=== PATIENT | female | born 1970 | race Caucasian/White ===

== ENCOUNTER 2017-05-18 05:37 | Day surgery (SDC) | payer OTHER ==
[~2017-05-18] VITALS: Ht 162.6 cm; Wt 85.8 kg
[~2017-05-18 05:37] MED LIST: ATOR20TA9 PO; CHOL10003 PO; CITA20TA5 PO; HYDR-3237 PO; LOSA100T6 PO; OMEP10CA4 PO; PREN-3 PO; VENL75TA PO
[2017-05-18] MEDS ORDERED: LACTATED RINGERS 1,000 ML IV SCH (06:21)
[2017-05-18 06:23] VITALS: BP 139/98
[2017-05-18] MEDS ORDERED: LIDOCAINE 1%, 2ML SQ PRN (06:30)
[2017-05-18 06:36] LABS: HCG UR LOT HCG7030192
[2017-05-18 06:41] LABS: HCG UR OBC PASS
[2017-05-18] MEDS ORDERED: SILVER NITRATE STICK TP ONE (06:56)
[2017-05-18] MEDS ORDERED: BUPIVACAINE/PF 0.25% ONE (06:56)
[2017-05-18] MEDS ORDERED: EPINEPHRINE 1 MG/ML, 1ML ONE (06:56)
[2017-05-18] MEDS ORDERED: CEFAZOLIN 1,000 MG ONE ×2 (07:00)
[2017-05-18] MEDS ORDERED: FENTANYL PF 100 MCG/2ML ONE ×3 (07:03→07:48)
[2017-05-18] MEDS ORDERED: MIDAZOLAM 1 MG/ML, 2ML ONE (07:03)
[2017-05-18] MEDS ORDERED: MEPERIDINE/PF 25MG/0.5ML IVPush PRN (07:30)
[2017-05-18] MEDS ORDERED: FENTANYL PF 100 MCG/2ML IV PRN (07:30)
[2017-05-18] MEDS ORDERED: HYDROmorphone 1 MG/ML, 1ML IV PRN (07:30)
[2017-05-18] MEDS ORDERED: ONDANSETRON 2MG/ML, 2ML IVPush PRN (07:30)
[2017-05-18] MEDS ORDERED: ACETAMINOPHEN 325 MG TABLET PO PRN (07:30)
[2017-05-18] MEDS ORDERED: OXYcodone 5 MG/5 ML ORAL.SOL UDC PO PRN (07:30)
[2017-05-18] MEDS ORDERED: PROMETHAZINE 25 MG/ML, 1ML IV PRN (07:30)
[2017-05-18] MEDS ORDERED: KETOROLAC 30 MG/1 ML ONE (07:38)
[2017-05-18] MEDS ORDERED: PROPOFOL 10 MG/ML, 20ML ONE (07:46)
[2017-05-18] MEDS ORDERED: DEXAMETHASONE 4 MG/ML, 1ML ONE ×3 (07:46)
[2017-05-18] MEDS ORDERED: ONDANSETRON 2MG/ML, 2ML ONE (07:47)
[2017-05-18] MEDS ORDERED: OXYcodone 5 MG/5 ML ORAL.SOL UDC ONE (08:55)
[2017-05-18] MEDS ORDERED: ACETAMINOPHEN 650 MG/20.3 ML UDC ONE (08:55)
== END 2017-05-18 11:20 ==
LOC: OUT 05:37
PROVIDERS: ATTEND Obstetrics & Gynecology
DX: N92.0 Excessive and frequent menstruation with regular cycle (principal); I10 Essential (primary) hypertension; F41.9 Anxiety disorder, unspecified; F32.9 Major depressive disorder, single episode, unspecified; K21.9 Gastro-esophageal reflux disease without esophagitis; Z88.2 Allergy status to sulfonamides; Z97.5 Presence of (intrauterine) contraceptive device
CPT/HCPCS: 36415; 58301; 58563; 81025; 86850; 86900; J0171; J0690; J1100; J1885; J2250; J2405; J2704; J3010; J3490; J7120

== ENCOUNTER → 2018-12-20 | Outpatient (CLI) | payer OTHER ==
[~2018-12-20] MED LIST changes: +ATOR20TA37 PO; -ATOR20TA9 PO; -CITA20TA5 PO; +CITA20TA6 PO; +LOSA100T14 PO; -LOSA100T6 PO
== END | disposition home or self-care (01) ==
LOC: CFH 09:53
PROVIDERS: ATTEND Obstetrics & Gynecology
DX: Z12.31 Encounter for screening mammogram for malignant neoplasm of breast (principal)
CPT/HCPCS: 77063; 77067

== ENCOUNTER 2019-06-07 09:24 | Outpatient (CLI) | payer OTHER ==
[~2019-06-07 09:24] MED LIST changes: -OMEP10CA4 PO; +OMEP10CA5 PO
== END 2019-06-07 23:59 | disposition home or self-care (01) ==
LOC: RAD 09:24
PROVIDERS: ATTEND Internal Medicine Gastroenterology
DX: K21.9 Gastro-esophageal reflux disease without esophagitis (principal); K59.09 Other constipation; J30.9 Allergic rhinitis, unspecified; E78.00 Pure hypercholesterolemia, unspecified; Z88.2 Allergy status to sulfonamides; Z87.891 Personal history of nicotine dependence
CPT/HCPCS: 78264; A9541

== ENCOUNTER → 2019-12-27 | Outpatient (CLI) | payer OTHER | END | disposition home or self-care (01) | LOC: CFH 12:13 | PROVIDERS: ATTEND Obstetrics & Gynecology | DX: Z12.31 Encounter for screening mammogram for malignant neoplasm of breast (principal) | CPT/HCPCS: 77063; 77067 ==

== ENCOUNTER 2021-03-05 12:30 | Outpatient (CLI) | payer OTHER | END 2021-03-05 23:59 | disposition home or self-care (01) | LOC: CFH 12:30 | PROVIDERS: ATTEND Obstetrics & Gynecology | DX: Z12.31 Encounter for screening mammogram for malignant neoplasm of breast (principal) | CPT/HCPCS: 77063; 77067 ==